=== PATIENT | male | born 1955 | race Caucasian/White ===

== ENCOUNTER 2025-06-07 16:50 | Emergency (ER) | payer MEDICARE, OTHER ==
[2025-06-07] MEDS: Lidocaine 1% with EPINEPHrine 1:100,000 20 ML MDV INJECT ONE (17:16)
== END 2025-06-07 17:28 | disposition home or self-care (01) ==
LOC: EDBD → LB.ED 16:50
DX: S61.441A Puncture wound with foreign body of right hand, initial encounter (principal); W45.8XXA Other foreign body or object entering through skin, initial encounter
CPT/HCPCS: 99283; J2004